=== PATIENT | male | born 1970 | race Hispanic/Latino ===

== ENCOUNTER 2016-08-25 22:08 | Inpatient (IN) | payer MEDICAID ==
--- NOTE | 2016-08-25 22:22 | C.PDOC ---
History Of Present Illness Patient presents to the ED as a transfer from [facility] for Major Depressive Disorder. Patient denies any physical complaints at this time. Patient has been medically cleared and is accepted by Dr. Bernal. Time Seen by Provider: 08/25/16 22:20 Chief Complaint (Nursing): Psychiatric Evaluation History Per: Patient History/Exam Limitations: no limitations Onset/Duration Of Symptoms: Hrs Current Symptoms Are (Timing): Still Present Suicide/Self Injury Attempted (Context): None Modifying Factor(s): None Severity: None Associated Symptoms: Depression (Major Depressive Disorder) Recent travel outside of the [facility]: No Past Medical History Reviewed: Historical Data, Nursing Documentation, Vital Signs Vital Signs: Last Vital Signs Temp 98.2 F 08/25/16 22:11 Pulse 56 L 08/25/16 22:11 Resp 18 08/25/16 22:11 BP 150/79 08/25/16 22:11 Pulse Ox 100 08/25/16 22:41 Family History: States: Unknown Family Hx - Social History Hx Alcohol Use: No Hx Substance Use: Yes (last use yesterday morning) - Immunization History Hx Tetanus Toxoid Vaccination: No Hx Influenza Vaccination: Yes Hx Pneumococcal Vaccination: No Review Of Systems Constitutional: Negative for: Fever Gastrointestinal: Negative for: Nausea, Vomiting, Diarrhea Psych: Positive for: Depression (Major Depressive Disorder) Physical Exam - Physical Exam Appears: Non-toxic Skin: Warm, Dry Extremity: Normal ROM, No Tenderness Neurological/Psych: Oriented x3, Normal Speech ED Course And Treatment O2 Sat by Pulse Oximetry: 100 Disposition Discussed With : Anayeli Bernal Comment: accepted the pt on her service and took over the care at 10:22 PM Doctor Will See Patient In The: Hospital Counseled Patient/Family Regarding: Studies Performed, Diagnosis - Disposition Disposition: HOSPITALIZED Disposition Time: 22:22 Condition: FAIR - POA Present On Arrival: None - Clinical Impression Clinical Impression: Major depressive disorder - Scribe Statement The provider has reviewed the documentation as recorded by the Scribyrn Encarncaion All medical record entries made by the Scribe were at my direction and personally dictated by me. I have reviewed the chart and agree that the record accurately reflects my personal performance of the history, physical exam, medical decision making, and the department course for this patient. I have also personally directed, reviewed, and agree with the discharge instructions and disposition. Decision To Admit - Pt Status Changed To: Hospital Disposition Of: Inpatient - Admit Certification Admit to Inpatient:: After my assessment, the patient will require hospitalization for at least two midnights. This is because of the severity of symptoms shown, intensity of services needed, and/or the medical risk in this patient being treated as an outpatient. - InPatient: Physician Admission Certification: I certify that this patient requires 2 or more midnights of care for the following reason:: After my assessment, the patient will require hospitalization for at least two midnights. This is because of the severity of symptoms shown, intensity of services needed, and/or the medical risk in this patient being treated as an outpatient. - . Bed Request Type: Psychiatry Admitting Physician: Anayeli Bernal Patient Diagnosis: Major depressive disorder
[2016-08-25 23:32] VITALS: O2SAT 98
[2016-08-26] MEDS ORDERED: Influenza Virus Vaccine 45 mcg/0.5 ml Syr IM ONE (00:30)
[2016-08-26] MEDS ORDERED: Pneumococcal 23-Valent Vaccine IM ONE (00:30)
--- NOTE | 2016-08-26 18:20 | PCM.PSYCH ---
Initial Psychiatric Evaluation - Initial Psychiatric Evaluation Type of Admission: Voluntary Legal Status: Capacity Chief Complaint (in patient's own words): I was feeling depressed and suicidal History of Present Illness and Precipitating Events: This is a 46 y/o CM who is currently unemployed, and lives with friend, came to the ED because of depressed mood and suicidal ideation with plan to overdose on heroin. Pt reports a long history of abusing heroin. As per the patient he relapsed on heroin soon after his last detox/rehab in June and started injecting 15-20 bags of heroin. He started becoming increasingly depressed. Day before yesterday he injected almost 15 bags of heroin, became increasingly depressed and yesterday he developed SI with plan to OD on heroin. So he came to the hospital to get help. Patient states depressed mood, feels of hopelessness and helplessness, poor sleep and poor appetite. He reports of experiencing withdrawal symptoms including nausea, abdominal cramps, restlessness, hot and cold flashes, yawning, tearing, and runny nose. He denies any auditory or visual hallucinations and denies any manic or psychotic symptoms. Patient denies any other substance abuse. Past medical history: none reported Current Medications: Active Medications Generic Name Dose Route Start Last Admin Trade Name Freq PRN Reason Stop Dose Admin Hydroxyzine HCl 50 mg 08/25/16 00:05 08/26/16 10:33 Atarax PO 50 mg Q6 PRN Administration Anxiety Quetiapine Fumarate 100 mg 08/25/16 00:06 08/26/16 00:14 Seroquel PO 100 mg HS PRN Administration Sleep Trazodone HCl 50 mg 08/25/16 00:06 Desyrel PO HS PRN Sleep Past Psychiatric History - Past Psychiatric History Previous Treatment History: Inpatient Pertinent Medical Hx (Current Medical&Sleep Prob, Allergies): Allergies Allergy/AdvReac Type Severity Reaction Status Date / Time No Known Allergies Allergy Verified 08/25/16 22:18 No Known Home Med 08/25/16 Review of Systems - Review of Systems All systems: reviewed and no additional remarkable complaints except - Psychiatric Psychiatric: Anxiety, Difficulty Concentrating, Suicidal Ideation. absent: Auditory Hallucinations, Visual Hallucinations Mental Status Examination - Personal Presentation Personal Presentation: Looks stated age - Affect Affect: Constricted, Depressed - Motor Activity Motor Activity: Calm - Reliability in Providing Information Reliability in Providing Information: Good - Speech Speech: Organized - Mood Mood: Depressed, Anxious - Formal Thought Process Formal Thought Process: No Impairment - Obsessions/Compulsions Obsessions: No Compulsions: No - Cognitive Functions Orientation: Person, Place, Situation, Time Sensorium: Alert Attention/Concentration: Attentive Abstract Thinking: [place] Estimate of Intelligence: Below average Judgement: Imparied, as evidence by: Poor judgement, Imparied, as evidence by: Lack of insight into illness - Risk Risk: Suicidal, Withdrawal, Diminished functioning - Strength & Assets Inventory Strength & Assets Inventory: Cooperative DSM 5 DX - DSM 5 DSM 5 Diagnosis: Major depressive disorder recurrent severe without psychotic features Opioid use disorder severe Opioid withdrawal - Recommended/Plan of Treatment Treatment Recommendations and Plan of Treatment: Major depressive disorder recurrent severe without psychotic features CBT Psychoeducation Supportive therapy, group therapy, individual therapy Trazodone 50 mg by mouth daily at bedtime Seroquel 100 mg by mouth daily at bedtime Opioid use disorder severe CBT Psychoeducation Supportive therapy, individual therapy Use [place] for abstinence Opioid withdrawal CBT Psychoeducation Supportive therapy, individual therapy Clonidine when necessary Methadone taper - Smoking Cessation Smoking Cessation Initiated: No
--- NOTE | 2016-08-27 16:09 | PCM.PYCHPN ---
Psychiatric Progress Note - Psychiatric Progress Note Patient seen today, length of contact: 15 minutes Patient Chief Complaint: I'm feeling much better with the treatment. I have to withdrawal symptoms. Problems Identified/Issues Discussed: Patient seen. Chart reviewed. Case discussed with the staff. Issues related to illness and treatment were discussed with the patient. Reported compliant with treatment with no adverse affects. Tolerating treatment very well. Reported feeling much better with the treatment. At the time of evaluation, patient was awake alert oriented 3, had no delusions, no auditory or visual hallucinations , no suicidal ideations or homicidal ideations. Medical Problems: None reported Diagnostic Results: Reviewed DSM 5 Symptoms Update: Improvement with treatment Medication Change: No Medical Record Reviewed: Yes Mental Status Examination - Cognitive Function Orientation: Person, Place, Situation, Time Memory: Intact Attention: WNL Concentration: WNL Association: [facility] Fund of Knowledge: [facility] Decription of patient's judgement and insights: Fair - Mood Mood: Depressed (Less than before) - Affect Affect: Depressed - Speech Speech: Appropriate - Formal Thought Process Formal Thought Process: No Impairment Psychotic Thoughts and Behaviors: None - Suicidal Ideation Suicidal Ideation: No - Homicidal Ideation Homicidal Ideation: No Goal/Treatment Plan - Goal/Treatment Plan Need for Continued Stay: Remain at risks for inpatient hospitalization, Discharge may exacerbated symptoms, Severe functional impairment Progress Toward Problem(s) and Goals/Treatment Plan: Improving with treatment Patient education Supportive therapy Continue treatment as before Patient wants to go to either [facility] or [facility] for follow-up care after discharge from the hospital Estimated Date of D/C: 08/31/16 - Smoking Cessation Smoking Cessation Initiated: No
--- NOTE | 2016-08-28 17:35 | PCM.PYCHPN ---
Psychiatric Progress Note - Psychiatric Progress Note Patient seen today, length of contact: 15 minutes Patient Chief Complaint: I'm feeling much better with the treatment. I have to withdrawal symptoms. Problems Identified/Issues Discussed: Patient seen. Chart reviewed. Case discussed with the staff. Issues related to illness and treatment were discussed with the patient. Reported compliant with treatment with no adverse affects. Tolerating treatment very well. Reported feeling much better with the treatment. At the time of evaluation, patient was awake alert oriented 3, had no delusions, no auditory or visual hallucinations , no suicidal ideations or homicidal ideations. Medical Problems: None reported Diagnostic Results: Reviewed DSM 5 Symptoms Update: Improving with treatment Medication Change: No Medical Record Reviewed: Yes Mental Status Examination - Cognitive Function Orientation: Person, Place, Situation, Time Memory: Intact Attention: WNL Concentration: WNL Association: [facility] Fund of Knowledge: [facility] Decription of patient's judgement and insights: Fair - Mood Mood: Depressed (Less than before) - Affect Affect: Depressed - Speech Speech: Appropriate - Formal Thought Process Formal Thought Process: No Impairment Psychotic Thoughts and Behaviors: None - Suicidal Ideation Suicidal Ideation: No - Homicidal Ideation Homicidal Ideation: No Goal/Treatment Plan - Goal/Treatment Plan Need for Continued Stay: Remain at risks for inpatient hospitalization, Discharge may exacerbated symptoms, Severe functional impairment Progress Toward Problem(s) and Goals/Treatment Plan: Improving with treatment Patient education Supportive therapy Continue treatment as before Patient wants to go to either [facility] or [facility] for follow-up care after discharge from the hospital Estimated Date of D/C: 08/31/16 - Smoking Cessation Smoking Cessation Initiated: No
--- NOTE | 2016-08-29 12:54 | PCM.PYCHPN ---
Psychiatric Progress Note - Psychiatric Progress Note Patient seen today, length of contact: 15 minutes Patient Chief Complaint: I am still feeling depressed Problems Identified/Issues Discussed: Pt seen and evaluated, and discussed with the staff. As per staff patient remained isolated, withdrawn and depressed. He still reports poor sleep and poor appetite. However, he denies any suicidal ideation. He reports withdrawal symptoms from heroin, including sweats, cramps and nausea. He is taking medications and denies any side effects. Supportive therapy and psychoeducation was given. Medication Change: Yes (start Zoloft) Medical Record Reviewed: Yes Mental Status Examination - Cognitive Function Orientation: Person, Place, Situation, Time Memory: Intact Attention: WNL Concentration: Poor Association: WNL Fund of Knowledge: Poor - Mood Mood: Depressed (Less than before) - Affect Affect: Depressed - Speech Speech: Appropriate - Formal Thought Process Formal Thought Process: No Impairment - Suicidal Ideation Suicidal Ideation: No - Homicidal Ideation Homicidal Ideation: No Goal/Treatment Plan - Goal/Treatment Plan Need for Continued Stay: Remain at risks for inpatient hospitalization, Discharge may exacerbated symptoms, Severe functional impairment Progress Toward Problem(s) and Goals/Treatment Plan: Major depressive disorder recurrent severe without psychotic features CBT Psychoeducation Supportive therapy, group therapy, individual therapy Trazodone 50 mg by mouth daily at bedtime Seroquel 100 mg by mouth daily at bedtime Zoloft 50 mg PO daily Opioid use disorder severe CBT Psychoeducation Supportive therapy, individual therapy Use [place] for abstinence Opioid withdrawal CBT Psychoeducation Supportive therapy, individual therapy Clonidine when necessary Methadone taper Estimated Date of D/C: 08/31/16 - Smoking Cessation Smoking Cessation Initiated: No
--- NOTE | 2016-08-30 15:42 | PCM.PYCHPN ---
Psychiatric Progress Note - Psychiatric Progress Note Patient seen today, length of contact: 15 minutes Patient Chief Complaint: I was feeling depressed Problems Identified/Issues Discussed: Pt seen and evaluated, and discussed with the staff. Pt reports depressed and irritable mood. He remained isolated, withdrawn and confined to his room. He reports improvement in the withdrawal symptoms from heroin, but still reports cramps and nausea. He is taking medications and denies any side effects. Supportive therapy and psychoeducation was given. Medication Change: Yes (increase Zoloft) Medical Record Reviewed: Yes Mental Status Examination - Cognitive Function Orientation: Person, Place, Situation, Time Memory: Intact Attention: WNL Concentration: WNL Association: WNL Fund of Knowledge: Poor - Mood Mood: Depressed (Less than before) - Affect Affect: Depressed - Speech Speech: Appropriate - Formal Thought Process Formal Thought Process: No Impairment - Suicidal Ideation Suicidal Ideation: No - Homicidal Ideation Homicidal Ideation: No Goal/Treatment Plan - Goal/Treatment Plan Need for Continued Stay: Remain at risks for inpatient hospitalization, Discharge may exacerbated symptoms, Severe functional impairment Progress Toward Problem(s) and Goals/Treatment Plan: Major depressive disorder recurrent severe without psychotic features CBT Psychoeducation Supportive therapy, group therapy, individual therapy Trazodone 50 mg by mouth daily at bedtime Seroquel 100 mg by mouth daily at bedtime Increase Zoloft to 100 mg po Daily Opioid use disorder severe CBT Psychoeducation Supportive therapy, individual therapy Use [place] for abstinence Opioid withdrawal CBT Psychoeducation Supportive therapy, individual therapy Clonidine when necessary Methadone taper Estimated Date of D/C: 08/31/16 - Smoking Cessation Smoking Cessation Initiated: No
--- NOTE | 2016-08-31 14:45 | PCM.PYCHPN ---
Psychiatric Progress Note - Psychiatric Progress Note Patient seen today, length of contact: 18 minutes Patient Chief Complaint: I was feeling a little better. Problems Identified/Issues Discussed: Pt seen and evaluated, chart reviewed and discussed with the staff. Pt reports improvement in his mood but he remained isolated, and withdrawn. He reports improvement in the withdrawal symptoms from heroin. He denies any suicidal ideation. He is taking medications and denies any side effects. Supportive therapy and psychoeducation was given. Medication Change: Yes (increase Zoloft, increase seroquel) Medical Record Reviewed: Yes Mental Status Examination - Cognitive Function Orientation: Person, Place, Situation, Time Memory: Intact Attention: WNL Concentration: WNL Association: WNL Fund of Knowledge: WNL - Mood Mood: Depressed (Less than before) - Affect Affect: Depressed - Speech Speech: Appropriate - Formal Thought Process Formal Thought Process: No Impairment - Suicidal Ideation Suicidal Ideation: No - Homicidal Ideation Homicidal Ideation: No Goal/Treatment Plan - Goal/Treatment Plan Need for Continued Stay: Remain at risks for inpatient hospitalization, Discharge may exacerbated symptoms, Severe functional impairment Progress Toward Problem(s) and Goals/Treatment Plan: Major depressive disorder recurrent severe without psychotic features CBT Psychoeducation Supportive therapy, group therapy, individual therapy Trazodone 50 mg by mouth daily at bedtime Seroquel 200 mg by mouth daily at bedtime Zoloft 200 mg PO Daily Opioid use disorder severe CBT Psychoeducation Supportive therapy, individual therapy Use [place] for abstinence Opioid withdrawal CBT Psychoeducation Supportive therapy, individual therapy Clonidine when necessary Methadone taper Estimated Date of D/C: 08/31/16 - Smoking Cessation Smoking Cessation Initiated: No
[2016-09-01 07:51] VITALS: BP 104/70; PULSE 70; RESP 20; TEMP 97.5
--- NOTE | 2016-09-01 09:40 | PCM.PYCHDC ---
Mental Status Examination - Mental Status Examination Orientation: Person, Place, Situation, Time Memory: Intact Mood: Neutral Affect: Constricted Speech: Soft Attention: WNL Concentration: WNL Association: WNL Fund of Knowledge: WNL Formal Thought Process: No Impairment Description of patient's judgement and insight: GOOD, FAIR Psychotic Thoughts and Behaviors: Denies any AVH Suicidal Ideation: No Current Homicidal Ideation?: No Discharge Summary - Discharge Note Reason for Hospitalization: This is a 46 y/o CM who is currently unemployed, and lives with friend, came to the ED because of depressed mood and suicidal ideation with plan to overdose on heroin. Pt reports a long history of abusing heroin. As per the patient he relapsed on heroin soon after his last detox/rehab in June and started injecting 15-20 bags of heroin. He started becoming increasingly depressed. Day before yesterday he injected almost 15 bags of heroin, became increasingly depressed and yesterday he developed SI with plan to OD on heroin. So he came to the hospital to get help. Patient states depressed mood, feels of hopelessness and helplessness, poor sleep and poor appetite. He reports of experiencing withdrawal symptoms including nausea, abdominal cramps, restlessness, hot and cold flashes, yawning, tearing, and runny nose. He denies any auditory or visual hallucinations and denies any manic or psychotic symptoms. Patient denies any other substance abuse. Consultations:: List each consultation separately and include: 1. Reason for request. 2. Findings. 3. Follow-up Summary of Hospital Course include:: 1. Description of specific treatment plan utilized for patients during their course of treatmen. 2. Summarize the time- course for resolution of acute symptoms and/or regressed behaviors. 3. Describe issues identified and worked on during hospitalization. 4. Describe medication utilized. 5. Describe medical problems identified and treated. 6. Reassessment of suicide risk Summary of Hospital Course: During the course of his stay, patient (pt) started progressively improving and he no longer remained irritable, depressed, suicidal. His mood and paranoia were improved and he started attending groups and meetings and started socializing. Patient denied any feelings of hopelessness, helplessness, and worthlessness, denied any problem with the sleep or appetite, denied suicidal ideation or homicidal ideation. Pt denied any auditory or visual hallucinations. Some changes were made in his current medications and patient was discharged on following medications. He tolerated these medications very well and denied any side effects. - Final Diagnosis (DSM 5) Condition upon Discharge: FAIR DSM 5: Major depressive disorder recurrent severe without psychotic features Opioid use disorder severe Opioid withdrawal Disposition: HOME/ ROUTINE Follow-up Treatment Plan: Education: Pt was educated and counseled about the risks and benefits of taking and not taking medications. Pt was educated and counseled about the risks of drinking and abusing drugs. Pt was educated and counseled to go to the ER or call 911 if pt develop suicidal ideation or homicidal ideation, worsening of symptoms or severe side effects of the meds. Prescriptions/Medication Reconciliation: traZODone [Desyrel] 50 mg PO HS PRN #30 tab PRN Reason: Sleep Gabapentin [Neurontin] 300 mg PO BID #60 cap QUEtiapine [SEROquel] 200 mg PO HS #30 tab Sertraline [Zoloft] 100 mg PO DAILY #60 tab - Smoking Cessation Smoking Cessation Medication prescribed: No - Antipsychotic Medications Pt discharged on 2 or more routine antipsychotic medications: No
== END 2016-09-01 11:10 | disposition home or self-care (01) | DRG 430 ==
LOC: C.ER 22:08 → C.5E 22:20
PROVIDERS: ADMIT Psychiatry & Neurology Psychiatry; ATTEND Psychiatry & Neurology Psychiatry
PROC: HZ2ZZZZ Detoxification Services for Substance Abuse Treatment (ICD-10-PCS; principal; 2016-08-25)
PROC: GZ56ZZZ Individual Psychotherapy, Supportive (ICD-10-PCS; 2016-08-25)
DX: F33.2 Major depressive disorder, recurrent severe without psychotic features (principal); R45.851 Suicidal ideations; F11.23 Opioid dependence with withdrawal